=== PATIENT | female | born 1980 | race Caucasian/White ===

== ENCOUNTER 2022-01-11 21:48 | Emergency (ER) | payer SELFPAY ==
[2022-01-11 22:04] VITALS: BP 210/126; PULSE 92; RESP 18; TEMP 36.6; O2SAT 100; BMI 40.8
--- NOTE | 2022-01-11 22:08 | ECG_ITS ---
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 Measurements Intervals [place] Rate: 84 P: 51 GA: 157 QRS: 23 QRSD: 78 T: 126 QT: 375 QTc: 443 Interpretive Statements SINUS RHYTHM POSSIBLE LEFT ATRIAL ENLARGEMENT [-0.1mV P-WAVE IN V1/V2] LEFT VENTRICULAR HYPERTROPHY AND ST-T CHANGE [VOLTAGE CRITERIA PLUS ST/T ABNORMALITY] POSSIBLE ANTERIOR MYOCARDIAL INFARCTION , OF INDETERMINATE AGE [30 ms Q WAVE IN V3/V4, OR R < 0.2 mV IN V4] No previous ECG available for comparison Electronically Signed On 01-12-2022 16:28:00 CDT by Ronni Greco M.D. [id number]
--- NOTE | 2022-01-11 22:11 | W.ED.GENADLT ---
HPI - General Adult General: Chief complaint: General Medical Stated complaint: Blood Pressure High Time Seen by Provider: 01/11/22 22:09 Source: patient Mode of arrival: ambulatory Limitations: no limitations History of Present Illness: 41-year-old female states that she did went to urgent care on Monday due to the pain was diagnosed ear infection states that when she is urgent care her blood pressure was in the 190s. States she did have gestational hypertension but states she does not typically take her blood pressure at all. States she took it again tonight and it was 200 and decided she need to be checked out. She states she has had no symptoms denies any headache denies any chest pain states she feels fine otherwise. Associated symptoms: Deny chest pain, dyspnea, headache(s), nausea, rash or vomiting Review of Systems Const: Denies: fever(s), chills, body aches or change in appetite Eyes: Denies: blurry vision or eye discomfort ENMT: Denies: throat pain or dental pain Card: Denies: chest pain Resp: Denies: dyspnea GI: Denies: abdominal pain, nausea, vomiting or diarrhea : Denies: dysuria Musc: Denies: neck pain or back pain Skin/Breast: Denies: rash Neuro: Denies: headache(s) Psych: Denies: depression Francisco Javier/Lymph: Denies: easy bruising All/Imm: Denies: urticaria PFSH ED PFSH: Medical History (Updated 01/12/22 @ 00:15 by Rafaela Diop MD) No pertinent past medical history Social History (Updated 01/11/22 @ 22:12 by Rafaela Diop MD) Substance/Drug Use: never Physical Exam Const: COMMON NORMALS: no acute distress, patient oriented x3 and healthy appearing HENMT: COMMON NORMALS: normocephalic and atraumatic HEAD & SCALP: normocephalic and atraumatic Eye: COMMON NORMALS: Equal, round and reactive pupils present and EOMs intact bilaterally PUPIL: Yes Equal, round and reactive pupils present Neck/C-Spine: COMMON NORMALS: full ROM and supple Chest: COMMONS NORMALS: normal inspection of the chest and normal palpation of entire chest wall Resp: COMMON NORMALS: normal respiratory effort, No retractions, No use of accessory muscles and clear to auscultation bilaterally AUSCULTATION: clear to auscultation bilaterally Cardio: COMMON NORMALS: regular rate, regular rhythm and No murmurs present (Cardio) RATE: regular rate RHYTHM: regular rhythm GI: COMMON NORMALS: Normal to inspection, nondistended, normoactive bowel sounds present, Soft to palpation, non-tender and no masses PALPATION: Yes Soft to palpation Extremity: COMMON NORMALS: normal to inspection and full ROM Neuro: COMMON NORMALS: patient oriented x3, moves all extremities and no focal motor deficits Psych: COMMON NORMALS: mental status grossly normal, Normal thought process present and cooperative THOUGHT PROCESS: Normal thought process present Skin: COMMON NORMALS: no rashes or lesions noted and no wounds GENERAL SKIN EXAM: no rashes or lesions noted Course Vital Signs: Vital signs: Vital Signs Temperature 97.8 F 01/11/22 22:04 Pulse Rate 90 01/11/22 22:37 Respiratory Rate 18 01/11/22 22:04 Blood Pressure 245/148 01/11/22 23:43 Pulse Oximetry 100 01/11/22 22:37 [facility] - General Adult Medical Decision Making Patient presents here with hypertension that is likely been chronic in nature patient is asymptomatic her blood work here is normal her blood pressure has came down here she is stable for discharge at this time will start on metoprolol and get her follow-up with her primary care physician she understands agrees to plan. Lab Data : 01/11/22 23:28 01/11/22 23:28 Laboratory Results WBC 11.1 10^3/uL (4.0-10.0) H 01/11/22 23: RBC 4.51 10^6/uL (4.1-5.3) 01/11/22 23:28 Hgb 13.7 g/dL (11.5-15.3) 01/11/22 23:28 Hct 42.3 % (37.0-47.0) 01/11/22 23: MCV 93.8 fl (81-99) 01/11/22 23:28 MCH 30.4 pg (28.0-34.0) 01/11/22 23: MCHC 32.4 g/dL (30.0-36.0) 01/11/22 23: RDW 12.6 % (12.1-15.1) 01/11/22 23:28 Plt Count 409 10^3/cmm (130-400) H 01/11/22 23: MPV 9.2 fL (7.4-10.4) 01/11/22 23: Neut % (Auto) 59.1 % 01/11/22 23: Lymph % (Auto) 31.7 % 01/11/22 23: [place] % (Auto) 6.5 % 01/11/22 23: Eos % (Auto) 1.5 % 01/11/22 23: Baso % (Auto) 0.6 % 01/11/22 23: Neut # (Auto) 6.56 10^3/uL (1.8-7.7) 01/11/22: Lymph # (Auto) 3.5 10^3/uL (0.8-4.8) 01/11/22: [place] # (Auto) 0.7 10^3/uL (0.2-0.9) 01/11/22 23: Eos # (Auto) 0.2 10^3/uL (0.0-0.8) 01/11/22 23: Baso # (Auto) 0.1 10^3/uL (0.0-0.1) 01/11/22: Nucleated RBC % (auto) 0 % 01/11/22: Nucleated RBCs # 0.0 /100WBC 01/11/22 23: Sodium 136 mmol/L (136-145) 01/11/22 23: Potassium 3.7 mmol/L (3.5-5.1) 01/11/22 23: Chloride 101 mmol/L (98-107) 01/11/22 23: Carbon Dioxide 24 mmol/L (22-29) 01/11/22 23: Anion Gap 14.7 (5-19) 01/11/22 23: BUN 10 mg/dL (6-20) 01/11/22 23: Creatinine 0.8 mg/dL (0.5-0.9) 01/11/22 23: Glucose 99 mg/dL (65-115) 01/11/22 23: Calcium 8.9 mg/dL (8.5-10.5) 01/11/22 23: Total Bilirubin 0.2 mg/dL (0.15-1.2) 01/11/22 23:28 AST 20 U/L (0-32) 01/11/22 23:28 ALT 25 U/L (0-33) 01/11/22 23:28 Total Protein 6.7 g/dL (6.6-8.7) 01/11/22 23:28 Albumin 4.1 g/dL (3.5-5.2) 01/11/22 23:28 Globulin 2.6 g/dL (1.3-4.6) 01/11/22 23:28 EKG Data EKG 1: I personally reviewed and interpreted this EKG as follows: EKG interpretation date: 01/11/22 EKG interpretation time: 22:35 Interpretation: nsr hr [address] or t wave abnormalities qrs 78 qtc 415 Discharge Plan Discharge Patient Disposition: Home Clinical Impression: Hypertension Prescriptions: New metoprolol succinate 50 mg tablet extended release 24 hr 50 mg PO DAILY Qty: 30 0RF Discharge Orders: Discharge ED (Routine); Ordered 01/12/22 Ordered By: Rafaela Diop Discharge Diet: Advance as tolerated Discharge Activity: Resume usual activity Patient Instructions: Hypertension (ED) Coding Level of Care Code ED Compliance Professional for Chg Fwd Exam Comprehensive
[2022-01-11] MEDS: metoprolol tartrate 50 mg Tablet PO (22:27)
[2022-01-11 22:37] VITALS: BP 235/127; PULSE 90; O2SAT 100
[2022-01-11 23:05] VITALS: BP 255/140
[2022-01-11] MEDS: cloNIDine 0.1 mg Tablet PO (23:05)
[2022-01-11] MEDS: hyDRALAzine 20 mg/mL INJ 1 mL 10 MG IVP (23:20)
[2022-01-11 23:43] VITALS: BP 245/148
[2022-01-11 23:45] LABS: Basophils # 0.1 10^3/uL (0.0-0.1); Basophils % 0.6 %; Eosinophils # 0.2 10^3/uL (0.0-0.8); Eosinophils % 1.5 %; Hematocrit 42.3 % (37.0-47.0); Hemoglobin 13.7 g/dL (11.5-15.3); Lymphocytes # 3.5 10^3/uL (0.8-4.8); Lymphocytes % 31.7 %; Mean Corpuscular HGB Conc 32.4 g/dL (30.0-36.0); Mean Corpuscular Hemoglobin 30.4 pg (28.0-34.0); Mean Corpuscular Volume 93.8 fl (81-99); Mean Platelet Volume 9.2 fL (7.4-10.4); Monocytes # 0.7 10^3/uL (0.2-0.9); Monocytes % 6.5 %; Neutrophils # 6.56 10^3/uL (1.8-7.7); Neutrophils % 59.1 %; Nucleated Red Blood Cells % 0 %; Platelet Count 409 10^3/cmm (130-400); Red Blood Count 4.51 10^6/uL (4.1-5.3); Red Cell Distribution Width 12.6 % (12.1-15.1); White Blood Count 11.1 10^3/uL (4.0-10.0)
[2022-01-12 00:12] LABS: Alanine Aminotransferase 25 U/L (0-33); Albumin Level 4.1 g/dL (3.5-5.2); Alkaline Phosphatase 109 IU/L (35-105); Anion Gap 14.7 (5-19); Aspartate Amino Transferase 20 U/L (0-32); Blood Urea Nitrogen 10 mg/dL (6-20); Calcium 8.9 mg/dL (8.5-10.5); Carbon Dioxide 24 mmol/L (22-29); Chloride 101 mmol/L (98-107); Globulin 2.6 g/dL (1.3-4.6); Glomerular Filtration Rate 79.4 mL/min (90-130); Glucose 99 mg/dL (65-115); Osmolality Calculated 281 mOsm/kg (285-295); Potassium 3.7 mmol/L (3.5-5.1); Sodium 136 mmol/L (136-145); Total Bilirubin 0.2 mg/dL (0.15-1.2); Total Protein 6.7 g/dL (6.6-8.7)
[2022-01-12] MEDS: labetalol 5 mg/mL SDV 20mL 20 MG IVP (00:13)
[2022-01-12 00:35] VITALS: BP 188/113; PULSE 89; RESP 16; O2SAT 98
--- NOTE | 2022-01-12 09:57 | DCPLANNER ---
media production support manager had message to speak with patient about getting established with a primary care physician. media production support manager unable to speak with patient at this time.
== END 2022-01-12 00:41 | disposition home or self-care (01) ==
PROVIDERS: Emergency Provider Emergency Medicine
DX: I10 Essential (primary) hypertension (principal)
CPT/HCPCS: 80053; 85025; 93005; 96374; 96375; 99284; J0360; J3490

== ENCOUNTER 2024-10-07 13:34 | Emergency (ER) | payer SELFPAY ==
[2024-10-07] VITALS (11 sets, daily range): BP systolic 161–233; BP diastolic 75–115; PULSE 72–109; RESP 14–20; TEMP 36.8; O2SAT 98–100; BMI 41.5
--- NOTE | 2024-10-07 14:07 | XR_ITS ---
WS: [id number] Exam: XR chest 1V portable [id number] Date/Time of Exam: 10/07/2024 2:07 PM Reason For Exam: dyspnea/cough No priors. The lungs are fully inflated and clear. Normal cardiomediastinal silhouette. Bony structures are intact. No pleural effusion. XR/XR chest 1V portable [id number] IMPRESSION: 1. Negative chest.
--- NOTE | 2024-10-07 14:07 | ECG_ITS ---
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 Measurements Intervals [place] Rate: 72 P: 26 NV: 142 QRS: 23 QRSD: 78 T: 69 QT: 368 QTc: 404 Interpretive Statements SINUS RHYTHM MINIMAL VOLTAGE CRITERIA FOR LVH, CONSIDER NORMAL VARIANT [MEETS CRITERIA IN ONE OF: R(aVL), S(V1), R(V5), R(V5/V6)+S(V1)] NONSPECIFIC ST & T-WAVE ABNORMALITY INTERPRETATION BASED ON A DEFAULT AGE OF 40 YEARS Compared to ECG 01/11/2022 22:35:37 T-wave abnormality now present ST (T wave) deviation no longer present Myocardial infarct finding no longer present Electronically Signed On 10-07-2024 16:37:18 CDT by Yolanda Tatum M.D. [id number]
--- NOTE | 2024-10-07 14:07 | W.ED.GENADLT ---
HPI - General Adult General: Chief complaint: General Medical Stated complaint: high bp Time Seen by Provider: 10/07/24 13:49 History of Present Illness: 44-year-old female presents to the emergency room with complaint of elevated blood pressure. She has a known history of hypertension she has not been taking her blood pressure medications regular blood pressure readings at home and become quite elevated she denies any chest pain. No difficulty speech swallowing or balance no vision changes. Patient gestational diabetes while was on labetalol afterwards was on another beta-tracie she cannot recall the exact name of it she thinks it may be Coreg. She took it for a time and then stopped because she does not like taking medications lately her blood pressure has been increasing. Associated symptoms: Deny chest pain, dyspnea or rash Related Data Previous Rx's ?Medication ?Instructions ?Recorded amlodipine 10 mg tablet 10 mg PO DAILY #30 tabs 10/07/24 metoprolol succinate 25 mg 25 mg PO DAILY #30 tabs 10/07/24 tablet,extended release 24 hr (Toprol XL) Allergies Allergy/AdvReac Type Severity Reaction Status Date / Time No Known Allergies Allergy Verified 10/07/24 13:47 Review of Systems Const: Denies: fever(s) or chills Card: Denies: chest pain Resp: Denies: dyspnea GI: Denies: abdominal pain : Denies: dysuria, urinary frequency or urinary urgency Musc: Denies: neck pain or back pain Skin/Breast: Denies: rash [facility] ED PFSH: Medical History No pertinent past medical history Social History Substance/Drug Use: never Physical Exam Const: COMMON NORMALS: no acute distress GENERAL APPEARANCE: cooperative and comfortable ORIENTATION/CONSCIOUSNESS: Yes awake, Yes oriented to person, Yes oriented to place and Yes oriented to time HENMT: COMMON NORMALS: normocephalic, atraumatic and hearing grossly normal bilaterally HEAD & SCALP: normocephalic and atraumatic Resp: COMMON NORMALS: normal respiratory effort, No retractions, No use of accessory muscles and clear to auscultation bilaterally AUSCULTATION: clear to auscultation bilaterally Cardio: COMMON NORMALS: regular rate, regular rhythm and No murmurs present (Cardio) RATE: regular rate RHYTHM: regular rhythm GI: COMMON NORMALS: Soft to palpation and No hepatosplenomegaly present AUSCULTATION: Yes normoactive bowel sounds PALPATION: Yes Soft to palpation, No Tenderness to palpation present (GI), No Guarding due to palpation present (GI) and Yes No hepatosplenomegaly present Extremity: COMMON NORMALS: normal to inspection, capillary refill normal, no clubbing, cyanosis or edema, no calf tenderness and no pedal edema Neuro: SENSORIUM/ORIENTATION: Yes oriented to person, Yes oriented to place and Yes oriented to time OTHER: No focal neurologic deficits noted Skin: COMMON NORMALS: no rashes or lesions noted GENERAL SKIN EXAM: no rashes or lesions noted Course Vital Signs: Vital signs: Vital Signs Temperature 98.2 F 10/07/24 13:39 Pulse Rate 104 H 10/07/24 16:36 Respiratory Rate 15 10/07/24 16:30 Blood Pressure 178/90 10/07/24 16:36 Pulse Oximetry 99 10/07/24 16:36 Oxygen Delivery Me thod Room Air 10/07/24 16:30 MDM - General Adult Medical Decision Making Blood pressure did improve with medications given started on amlodipine 10 mg daily metoprolol 25 p.o. daily. Previously was on nifedipine stop this. Follow-up with her primary care doc within the next week. Return if has further problems. Medical Records I reviewed the patient's medical records. Lab Data I reviewed the patient's lab results. 10/07/24 14:09 10/07/24 14:09 Radiology Impressions Chest X-Ray 10/07/24 14:07 IMPRESSION: 1. Negative chest. Laboratory Results WBC 8.42 10^3/uL (3.29-11.43) 10/07/24 14:09 RBC 4.96 10^6/uL (3.85-5.65) 10/07/24 14:09 Hgb 14.70 g/dL (11.27-16.99) 10/07/24 14:09 Hct 43.8 % (36-47) 10/07/24 14:09 MCV 88.3 fl (85-98) 10/07/24 14:09 MCH 29.6 pg (27-33) 10/07/24 14:09 MCHC 33.6 g/dL (30-55) 10/07/24 14:09 RDW 12.7 % (12.1-15.1) 10/07/24 14:09 Plt Count 396 10^3/cmm (157-399) 10/07/24 14:09 MPV 9.1 fL (7.4-10.4) 10/07/24 14:09 Neut % (Auto) 63.7 % 10/07/24 14:09 Lymph % (Auto) 26.2 % 10/07/24 14:09 [place] % (Auto) 7.5 % 10/07/24 14:09 Eos % (Auto) 1.7 % 10/07/24 14:09 Baso % (Auto) 0.5 % 10/07/24 14:09 Neut # (Auto) 5.37 10^3/uL (1.8-7.7) 10/07/24 14:09 Lymph # (Auto) 2.2 10^3/uL (0.8-4.8) 10/07/24 14:09 [place] # (Auto) 0.6 10^3/uL (0.2-0.9) 10/07/24 14:09 Eos # (Auto) 0.1 10^3/uL (0.0-0.8) 10/07/24 14:09 Baso # (Auto) 0.0 10^3/uL (0.0-0.1) 10/07/24 14:09 Nucleated RBC % (auto) 0 % 10/07/24 14:09 Nucleated RBCs # 0.0 /100WBC 10/07/24 14:09 Sodium 137 mmol/L (136-145) 10/07/24 14:09 Potassium 3.8 mmol/L (3.5-5.1) 10/07/24 14:09 Chloride 103 mmol/L (98-107) 10/07/24 14:09 Carbon Dioxide 23 mmol/L (22-29) 10/07/24 14:09 Anion Gap 14.8 (5-19) 10/07/24 14:09 BUN 9 mg/dL (6-20) 10/07/24 14:09 Creatinine 0.6 mg/dL (0.5-0.9) 10/07/24 14:09 GFR Calculation 109.1 mL/min (90-130) 10/07/24 14:09 Glucose 90 mg/dL (65-115) 10/07/24 14:09 Calculated Osmolality 282 mOsm/kg (285-295) L 10/07/24 14:09 Calcium 9.2 mg/dL (8.5-10.5) 10/07/24 14:09 Total Bilirubin 0.4 mg/dL (0.15-1.2) 10/07/24 14:09 AST 19 U/L (0-32) 10/07/24 14:09 ALT 21 U/L (0-33) 10/07/24 14:09 Alkaline Phosphatase 87 U/L (35-105) 10/07/24 14:09 Total Protein 7.3 g/dL (6.6-8.7) 10/07/24 14:09 Albumin 4.4 g/dL (3.5-5.2) 10/07/24 14:09 Globulin 2.9 g/dL (1.3-4.6) 10/07/24 14:09 Urine Color Yellow (Yellow) 10/07/24 15:09 Urine Appearance Clear (CLEAR) 10/07/24 15:09 Urine pH 7.5 (5-7) 10/07/24 15:09 Ur Specific [place] 1.006 (1.005-1.030) 10/07/24 15:09 Urine Protein Negative (Negative) 10/07/24 15:09 Urine Glucose (UA) Negative (Normal) 10/07/24 15:09 Urine Ketones Negative (Negative) 10/07/24 15:09 Urine Blood Negative (Negative) 10/07/24 15:09 Urine Nitrate Negative (Negative) 10/07/24 15:09 Urine Bilirubin Negative (Negative) 10/07/24 15:09 Urine Urobilinogen 0.2 mg/dL (Negative) 10/07/24 15:09 Ur Leukocyte Esterase Negative (Negative) 10/07/24 15:09 Urine RBC 0-2 /hpf (0-2) 10/07/24 15:09 Urine WBC 0-5 /hpf (0-5) 10/07/24 15:09 Ur Squamous Epith Cells 0-5 /hpf (0-5) 10/07/24 15:09 Amorphous Sediment Not Reportable 10/07/24 15:09 Urine Bacteria None seen /hpf (NONE) 10/07/24 15:09 Hyaline Casts 0-4 /lpf H 10/07/24 15:09 All radiology interpretation(s) finalized by discharge Discharge Plan Discharge Patient Disposition: Home Clinical Impression: HTN (hypertension) Qualifiers: Hypertension type: primary hypertension Qualified Code(s): I10 - Essential (primary) hypertension Condition: Stable Prescriptions: New metoprolol succinate [Toprol XL] 25 mg tablet extended release 24 hr 25 mg PO DAILY Qty: 30 0RF amlodipine 10 mg tablet 10 mg PO DAILY Qty: 30 0RF Discharge Orders: Discharge ED (Routine); Ordered 10/07/24 Ordered By: Beto Glover Discharge Diet: Usual diet Discharge Activity: Increase activity as tolerated Patient Instructions: Opioid Safety, Pain Management Activity Restrictions/Additional Instructions: Thank you for choosing [facility] for your healthcare needs today. It is very important that you follow up as instructed or that you return to the Emergency Department should you have concerns or if your condition changes or worsens in any way. You are seen in the emergency room with elevated blood pressure. Your blood pressure did improve with medications given. We recommend that you start amlodipine 10 mg daily Toprol-XL 25 mg daily should be seen within the next week by your primary care doctor to reevaluate your blood pressure. 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
[2024-10-07 14:30] LABS: Basophils % 0.5 %; Eosinophils # 0.1 10^3/uL (0.0-0.8); Eosinophils % 1.7 %; Hematocrit 43.8 % (36-47); Lymphocytes # 2.2 10^3/uL (0.8-4.8); Lymphocytes % 26.2 %; Mean Corpuscular HGB Conc 33.6 g/dL (30-55); Mean Corpuscular Hemoglobin 29.6 pg (27-33); Mean Corpuscular Volume 88.3 fl (85-98); Mean Platelet Volume 9.1 fL (7.4-10.4); Monocytes # 0.6 10^3/uL (0.2-0.9); Monocytes % 7.5 %; Neutrophils # 5.37 10^3/uL (1.8-7.7); Neutrophils % 63.7 %; Nucleated Red Blood Cells % 0 %; Platelet Count 396 10^3/cmm (157-399); Red Blood Count 4.96 10^6/uL (3.85-5.65); Red Cell Distribution Width 12.7 % (12.1-15.1); White Blood Count 8.42 10^3/uL (3.29-11.43)
[2024-10-07 14:40] LABS: Alanine Aminotransferase 21 U/L (0-33); Albumin Level 4.4 g/dL (3.5-5.2); Alkaline Phosphatase 87 U/L (35-105); Anion Gap 14.8 (5-19); Aspartate Amino Transferase 19 U/L (0-32); Blood Urea Nitrogen 9 mg/dL (6-20); Calcium 9.2 mg/dL (8.5-10.5); Carbon Dioxide 23 mmol/L (22-29); Chloride 103 mmol/L (98-107); Creatinine Clr Calc Pharmacy 130.9199; Globulin 2.9 g/dL (1.3-4.6); Glomerular Filtration Rate 109.1 mL/min (90-130); Glucose 90 mg/dL (65-115); Osmolality Calculated 282 mOsm/kg (285-295); Potassium 3.8 mmol/L (3.5-5.1); Sodium 137 mmol/L (136-145); Total Bilirubin 0.4 mg/dL (0.15-1.2); Total Protein 7.3 g/dL (6.6-8.7)
[2024-10-07] MEDS: hyDRALAzine 20 mg/mL INJ 1 mL IVP (14:42)
[2024-10-07] MEDS: labetalol 5 mg/mL SDV 20mL 10 MG IVP (14:47)
[2024-10-07] MEDS: amlodipine 10 mg Tablet PO (15:36)
[2024-10-07] MEDS: metoprolol succinate ER (24 HR) 25 mg Tablet PO (15:37)
[2024-10-07 15:45] LABS: Bilirubin Urine Negative (Negative); Blood Urine Negative (Negative); Glucose Urine UA Negative (Normal); Ketones Urine Negative (Negative); Leukocyte Esterase Urine Negative (Negative); Nitrate Urine Negative (Negative); Protein Urine Negative (Negative); Specific Gravity, Urine 1.006 (1.005-1.030); Urine Appearance Clear (CLEAR); Urine Color Yellow (Yellow); Urobilinogen Urine 0.2 mg/dL (Negative); pH Urine 7.5 (5-7)
[2024-10-07 15:47] LABS: Add Urine Microscopic? YES; Bacteria Urine None Seen /hpf; Hyaline Casts Urine 0-4 /lpf; RBC Urine 0-2 /hpf (0-2); Squamous Epithelial Cell Urine 0-5 /hpf (0-5); WBC Urine 0-5 /hpf (0-5)
[2024-10-07 15:49] LABS: Add Urine Culture? No
== END 2024-10-07 16:36 | disposition home or self-care (01) ==
PROVIDERS: Emergency Provider Family Medicine
DX: I10 Essential (primary) hypertension (principal)
CPT/HCPCS: 36415; 71045; 80053; 81001; 85025; 93005; 96374; 96375; 99285; J0360; J3490; J9999

== ENCOUNTER → 2024-11-12 13:40 | Outpatient (BNVA) | payer SELFPAY | PROVIDERS: Family Provider Nurse Practitioner; PCP Nurse Practitioner; Visit Provider Nurse Practitioner | DX: R30.0 Dysuria (principal) | CPT/HCPCS: 81000 ==